=== PATIENT | male | born 1945 | race African-American/Black ===

== ENCOUNTER 2017-06-08 10:27 | Day surgery (SDC) | payer MEDICARE, MEDICAID ==
[2017-06-08] MEDS ORDERED: Epoetin 40,000 UNITS/ML VIAL SC SCH (10:45)
== END 2017-06-08 10:57 | disposition home or self-care (01) ==
LOC: ONC/OP 10:27
PROVIDERS: ATTEND Internal Medicine Medical Oncology
DX: N18.4 Chronic kidney disease, stage 4 (severe) (principal); D63.1 Anemia in chronic kidney disease
CPT/HCPCS: 96372

== ENCOUNTER 2017-06-23 09:49 | Day surgery (SDC) | payer MEDICARE, MEDICAID ==
[2017-06-23] MEDS ORDERED: Epoetin 40,000 UNITS/ML VIAL SC ONE (13:00)
== END 2017-06-23 15:11 | disposition home or self-care (01) ==
LOC: ONC/OP 09:49
PROVIDERS: ATTEND Internal Medicine Medical Oncology
DX: N18.4 Chronic kidney disease, stage 4 (severe) (principal); D63.1 Anemia in chronic kidney disease
CPT/HCPCS: 96372

== ENCOUNTER 2017-07-06 10:45 | Day surgery (SDC) | payer MEDICARE, MEDICAID ==
[2017-07-06] MEDS ORDERED: Epoetin 40,000 UNITS/ML VIAL SC SCH (11:00)
[2017-07-06 12:09] VITALS: BP 167/72; TEMP 97.4
== END 2017-07-06 11:00 | disposition home or self-care (01) ==
LOC: ONC/OP 10:45
PROVIDERS: ATTEND Internal Medicine Medical Oncology
DX: N18.4 Chronic kidney disease, stage 4 (severe) (principal); D63.1 Anemia in chronic kidney disease
CPT/HCPCS: 96372

== ENCOUNTER 2017-08-03 10:23 | Day surgery (SDC) | payer MEDICARE, MEDICAID ==
[2017-08-03] MEDS ORDERED: Epoetin (ESRD) 20,000 UNITS/ML SC SCH (10:45)
[2017-08-03] MEDS ORDERED: Epoetin 40,000 UNITS/ML VIAL SC SCH (11:00)
== END 2017-08-03 11:05 | disposition home or self-care (01) ==
LOC: ONC/OP 10:23
PROVIDERS: ATTEND Internal Medicine Medical Oncology
DX: N18.4 Chronic kidney disease, stage 4 (severe) (principal); D63.1 Anemia in chronic kidney disease
CPT/HCPCS: 36415; 82728; 96372

== ENCOUNTER 2017-08-17 11:19 | Day surgery (SDC) | payer MEDICARE, MEDICAID ==
[2017-08-17] MEDS ORDERED: Epoetin 40,000 UNITS/ML VIAL SC SCH (11:45)
== END 2017-08-17 11:58 | disposition home or self-care (01) ==
LOC: ONC/OP 11:19
PROVIDERS: ATTEND Internal Medicine Medical Oncology
DX: N18.4 Chronic kidney disease, stage 4 (severe) (principal); D63.1 Anemia in chronic kidney disease
CPT/HCPCS: 96372; J0885

== ENCOUNTER 2017-08-31 10:38 | Day surgery (SDC) | payer MEDICARE, MEDICAID ==
[2017-08-31 11:01] VITALS: BP 180/77; TEMP 97.4
[2017-08-31] MEDS ORDERED: Epoetin 40,000 UNITS/ML VIAL SC SCH (11:15)
== END 2017-08-31 11:21 | disposition home or self-care (01) ==
LOC: ONC/OP 10:38
PROVIDERS: ATTEND Internal Medicine Medical Oncology
DX: N18.4 Chronic kidney disease, stage 4 (severe) (principal); D63.1 Anemia in chronic kidney disease
CPT/HCPCS: 96372; J0885

== ENCOUNTER 2017-09-14 10:16 | Day surgery (SDC) | payer MEDICARE, MEDICAID ==
[2017-09-14 10:23] VITALS: BP 174/77; TEMP 97.6
[2017-09-14] MEDS ORDERED: Epoetin 40,000 UNITS/ML VIAL SC SCH (10:30)
== END 2017-09-14 10:30 | disposition home or self-care (01) ==
LOC: ONC/OP 10:16
PROVIDERS: ATTEND Internal Medicine Medical Oncology
DX: N18.4 Chronic kidney disease, stage 4 (severe) (principal); D63.1 Anemia in chronic kidney disease
CPT/HCPCS: 96372; J0885

== ENCOUNTER 2017-10-19 10:55 | Day surgery (SDC) | payer MEDICARE, MEDICAID ==
[2017-10-19] MEDS ORDERED: Epoetin 40,000 UNITS/ML VIAL SC SCH (11:15)
== END 2017-10-19 12:01 | disposition home or self-care (01) ==
LOC: ONC/OP 10:55
PROVIDERS: ATTEND Internal Medicine Medical Oncology
DX: N18.4 Chronic kidney disease, stage 4 (severe) (principal); D63.1 Anemia in chronic kidney disease
CPT/HCPCS: 96372; J0885

== ENCOUNTER 2017-10-26 11:04 | Day surgery (SDC) | payer MEDICARE, MEDICAID ==
[2017-10-26] MEDS ORDERED: Epoetin 40,000 UNITS/ML VIAL SC SCH (11:15)
== END 2017-10-26 16:06 | disposition home or self-care (01) ==
LOC: ONC/OP 11:04
PROVIDERS: ATTEND Internal Medicine Medical Oncology
DX: N18.4 Chronic kidney disease, stage 4 (severe) (principal); D63.1 Anemia in chronic kidney disease
CPT/HCPCS: 96372; J0885

== ENCOUNTER 2017-11-09 10:04 | Day surgery (SDC) | payer MEDICARE, MEDICAID ==
[2017-11-09] MEDS ORDERED: Epoetin 40,000 UNITS/ML VIAL SC SCH (10:15)
[2017-11-09 10:31] VITALS: BP 168/73; TEMP 98
== END 2017-11-09 10:31 | disposition home or self-care (01) ==
LOC: ONC/OP 10:04
PROVIDERS: ATTEND Internal Medicine Medical Oncology
DX: N18.4 Chronic kidney disease, stage 4 (severe) (principal); D63.1 Anemia in chronic kidney disease
CPT/HCPCS: 96372; J0885

== ENCOUNTER 2017-11-23 09:43 | Day surgery (SDC) | payer MEDICARE, MEDICAID ==
[2017-11-23 09:57] VITALS: BP 143/65; TEMP 97.5
[2017-11-23] MEDS ORDERED: Epoetin 40,000 UNITS/ML VIAL SC SCH (10:00)
== END 2017-11-23 09:57 | disposition home or self-care (01) ==
LOC: ONC/OP 09:43
PROVIDERS: ATTEND Internal Medicine Medical Oncology
DX: N18.4 Chronic kidney disease, stage 4 (severe) (principal); D63.1 Anemia in chronic kidney disease
CPT/HCPCS: 96372; J0885

== ENCOUNTER 2017-12-07 09:53 | Day surgery (SDC) | payer MEDICARE, MEDICAID ==
[2017-12-07] MEDS ORDERED: Epoetin 40,000 UNITS/ML VIAL SC SCH (10:00)
[2017-12-07 10:02] VITALS: BP 156/67
== END 2017-12-07 10:03 | disposition home or self-care (01) ==
LOC: ONC/OP 09:53
PROVIDERS: ATTEND Internal Medicine Medical Oncology
DX: N18.4 Chronic kidney disease, stage 4 (severe) (principal); D63.1 Anemia in chronic kidney disease
CPT/HCPCS: 96372; J0885

== ENCOUNTER 2017-12-21 09:42 | Day surgery (SDC) | payer MEDICARE, MEDICAID ==
[2017-12-21 09:58] VITALS: BP 141/65; TEMP 97.6
[2017-12-21] MEDS ORDERED: Epoetin 40,000 UNITS/ML VIAL SC SCH (10:00)
== END 2017-12-21 09:58 | disposition home or self-care (01) ==
LOC: ONC/OP 09:42
PROVIDERS: ATTEND Internal Medicine Medical Oncology
DX: N18.4 Chronic kidney disease, stage 4 (severe) (principal); D63.1 Anemia in chronic kidney disease
CPT/HCPCS: 96372; J0885

== ENCOUNTER 2018-01-04 09:33 | Day surgery (SDC) | payer MEDICARE, MEDICAID ==
[2018-01-04] MEDS ORDERED: Epoetin 40,000 UNITS/ML VIAL ONE (09:38)
[2018-01-04 09:47] VITALS: BP 154/71; TEMP 97.9
[2018-01-04] MEDS ORDERED: Epoetin 40,000 UNITS/ML VIAL SC SCH (10:00)
== END 2018-01-04 09:49 | disposition home or self-care (01) ==
LOC: ONC/OP 09:33
PROVIDERS: ATTEND Internal Medicine Medical Oncology
DX: N18.4 Chronic kidney disease, stage 4 (severe) (principal); D63.1 Anemia in chronic kidney disease
CPT/HCPCS: 96372; J0885

== ENCOUNTER 2018-01-18 09:15 | Day surgery (SDC) | payer MEDICARE, MEDICAID ==
[2018-01-18] MEDS ORDERED: Epoetin 40,000 UNITS/ML VIAL SC SCH (09:30)
[2018-01-18 09:43] VITALS: BP 177/75; TEMP 97.7
== END 2018-01-18 09:43 | disposition home or self-care (01) ==
LOC: ONC/OP 09:15
PROVIDERS: ATTEND Internal Medicine Medical Oncology
DX: I12.9 Hypertensive chronic kidney disease with stage 1 through stage 4 chronic kidney disease, or unspecified chronic kidney disease (principal); N18.4 Chronic kidney disease, stage 4 (severe); D63.1 Anemia in chronic kidney disease
CPT/HCPCS: 36415; 82728; 83540; 83550; 96372; J0885

== ENCOUNTER 2018-01-31 10:34 | Day surgery (SDC) | payer MEDICARE, MEDICAID ==
[2018-01-31] MEDS ORDERED: Epoetin 40,000 UNITS/ML VIAL SC SCH (10:45)
== END 2018-01-31 11:39 | disposition home or self-care (01) ==
LOC: ONC/OP 10:34
PROVIDERS: ATTEND Internal Medicine Medical Oncology
DX: N18.4 Chronic kidney disease, stage 4 (severe) (principal); D63.1 Anemia in chronic kidney disease
CPT/HCPCS: 96372; J0885

== ENCOUNTER 2018-02-15 11:14 | Day surgery (SDC) | payer MEDICARE, MEDICAID ==
[2018-02-15] MEDS ORDERED: Epoetin 40,000 UNITS/ML VIAL SC SCH (11:30)
[2018-02-15 13:53] VITALS: BP 142/63; TEMP 97.7
== END 2018-02-15 13:53 | disposition home or self-care (01) ==
LOC: ONC/OP 11:14
PROVIDERS: ATTEND Internal Medicine Medical Oncology
DX: N18.4 Chronic kidney disease, stage 4 (severe) (principal); D63.1 Anemia in chronic kidney disease
CPT/HCPCS: 96372; J0885

== ENCOUNTER 2018-03-01 10:01 | Day surgery (SDC) | payer MEDICARE, MEDICAID ==
[2018-03-01] MEDS ORDERED: Epoetin 40,000 UNITS/ML VIAL SC SCH (10:15)
[2018-03-01 15:27] VITALS: BP 172/80; TEMP 97.8
== END 2018-03-01 10:11 | disposition home or self-care (01) ==
LOC: ONC/OP 10:01
PROVIDERS: ATTEND Internal Medicine Medical Oncology
DX: N18.4 Chronic kidney disease, stage 4 (severe) (principal); D63.1 Anemia in chronic kidney disease
CPT/HCPCS: 96372

== ENCOUNTER 2018-03-15 09:46 | Day surgery (SDC) | payer MEDICARE, MEDICAID ==
[2018-03-15 09:57] VITALS: BP 143/67; TEMP 97.7
[2018-03-15] MEDS ORDERED: Epoetin 40,000 UNITS/ML VIAL SC SCH (10:00)
== END 2018-03-15 15:18 | disposition home or self-care (01) ==
LOC: ONC/OP 09:46
PROVIDERS: ATTEND Internal Medicine Medical Oncology
DX: N18.4 Chronic kidney disease, stage 4 (severe) (principal); D63.1 Anemia in chronic kidney disease
CPT/HCPCS: 96372

== ENCOUNTER 2018-04-26 09:37 | Day surgery (SDC) | payer MEDICARE, MEDICAID ==
[2018-04-26] MEDS ORDERED: Epoetin 40,000 UNITS/ML VIAL SC SCH (10:00)
[2018-04-26 10:20] VITALS: BP 160/73
== END 2018-04-26 12:58 | disposition home or self-care (01) ==
LOC: ONC/OP 09:37
PROVIDERS: ATTEND Internal Medicine Medical Oncology
DX: N18.4 Chronic kidney disease, stage 4 (severe) (principal); D63.1 Anemia in chronic kidney disease
CPT/HCPCS: 96367

== ENCOUNTER → 2018-05-10 | Day surgery (SDC) | payer MEDICARE, MEDICAID ==
[~2018-05-10] MED LIST: Epoetin 40,000 UNITS/ML VIAL ONE; Epoetin 40,000 UNITS/ML VIAL SC SCH
[2018-05-10 10:27] VITALS: BP 134/60; TEMP 97.7
== END ==
LOC: ONC/OP 10:06
PROVIDERS: ATTEND Internal Medicine Medical Oncology
DX: N18.4 Chronic kidney disease, stage 4 (severe) (principal); D63.1 Anemia in chronic kidney disease
CPT/HCPCS: 96372; J0885

== ENCOUNTER 2018-06-07 11:59 | Day surgery (SDC) | payer MEDICARE, MEDICAID ==
[2018-06-07 12:21] VITALS: BP 141/60; TEMP 98.1
[2018-06-07] MEDS ORDERED: Epoetin 40,000 UNITS/ML VIAL SC SCH (12:30)
== END 2018-06-07 15:36 | disposition home or self-care (01) ==
LOC: ONC/OP 11:59
PROVIDERS: ATTEND Internal Medicine Medical Oncology
DX: N18.4 Chronic kidney disease, stage 4 (severe) (principal); D63.1 Anemia in chronic kidney disease
CPT/HCPCS: 96372; J0885